=== PATIENT | female | born 1990 | race African-American/Black ===

== ENCOUNTER 2020-07-08 15:30 | Inpatient (IN) | payer OTHER ==
--- NOTE | 2020-07-08 17:31 | PD.OB.PROG ---
Past Medical History - Primary Care Physician PCP:: Timbo Victoria Documenting Provider Type: Laborist - Admission Chief Complaint: ctx History of Present Illness: Term gestation, admitted w ctx. , 40w 5d of gestation. History Source: Patient, Medical Record Limitations to Obtaining History: No Limitations - Nursing Documentation Maternal Triage Index: Maternal Triage Index ( Priority 4, Non-urgent MFTI) Nursing Documentation Reviewed: Yes - Past Medical History SENSORY SCIENTIST: Denies/None Cardio/Vascular: Denies/None Pulmonary: Denies/None Gastrointestinal: Denies/None Hepatobiliary: Denies/None Renal/: Denies/None ...: 1 ...Para: 0 ...Term: 0 ...: 0 ...Spon : 0 ...Induced : 0 ...Living Children: 0 ...LMP: 09/27/19 ... Weeks Gestation by Dates: 40.5 ...EDC by Dates: 07/03/20 Heme/Onc: Denies/None Infectious Disease: Denies/None Psych: Denies/None Musculoskeletal: Denies/None Rheumatology: Denies/None ENT: Denies/None Endocrine: Denies/None Dermatology: Denies/None - Past Surgical History Past Surgical History: Yes: None Review of Systems - Review of Systems Constitutional: reports: No Symptoms Eyes: reports: No Symptoms HENT: reports: No Symptoms Neck: reports: No Symptoms Cardiovascular: reports: No Symptoms Respiratory: reports: No Symptoms Gastrointestinal: reports: No Symptoms Genitourinary: reports: No Symptoms Breasts: reports: No Symptoms Reported Musculoskeletal: reports: No Symptoms Integumentary: reports: No Symptoms Neurological: reports: No Symptoms Endocrine: reports: No Symptoms Hematology/Lymphatic: reports: No Symptoms Psychiatric: reports: No Symptoms Physical Exam - Obstetrical Vital Signs: Vital Signs Temperature 99.2 F 07/08/20 16:00 Pulse Rate 69 07/08/20 16:00 Respiratory Rate 18 07/08/20 16:00 Blood Pressure 131/79 07/08/20 16:00 O2 Sat by Pulse Oximetry (%) Constitutional: Yes: Well Nourished, No Distress, Calm Eyes: Yes: WNL, Conjunctiva Clear, EOM Intact HENT: Yes: WNL, Atraumatic, Normocephalic Neck: Yes: WNL, Supple, Trachea Midline Cardiovascular: Yes: WNL, Regular Rate and Rhythm Lungs: Clear to auscultation Breast(s): Yes: WNL - Abdominal Exam/OB Fundal Height: 40 Number of Fetuses: Single Presentation: Vertex Contractions: Yes Regularity: Irregular Intensity: Mild/Mod Monitor Mode: External Heart Rate (range): 140 Heart Rate Location: [facility] Category: I Accelerations: Uniform - Vaginal Exam/OB Vaginal Exam Deferred: No Vaginal Bleeding: No Speculum Exam: No Dilatation (cm): 0 Effacement (%): 50 Amniotic Membrane Status: Intact Presentation: Vertex/Position Station: -2 - Physical Exam Musculoskeletal: Yes: WNL Extremities: Yes: WNL Integumentary: Yes: WNL ...Motor Strength: WNL Psychiatric: Yes: WNL Problem List - Problems (1) , post-term Code(s): O48.0 - POST-TERM (2) Uterine contractions Code(s): WCK5917 - Assessment/Plan Postdates . Good FH. Prodromal/early labor. Findings discussed w PCP (Dr. Ren.
[2020-07-08] MEDS ORDERED: LACTATED RINGERS SOLUTION 500 ML IV ONE ×2 (18:00→19:00)
[2020-07-08 18:09] LABS: EPI CELLS >36 /uL (0-25.1); HYALINE CASTS 3 /uL (0-3.1); PH,URINE 8.5 (5.0-8.0); URINE APPEARANCE CLOUDY; URINE BACTERIA 510 /uL (0-1359); URINE BILIRUBIN NEGATIVE (NEGATIVE); URINE COLOR YELLOW; URINE GLUCOSE (UA) NEGATIVE (NEGATIVE); URINE KETONE NEGATIVE (NEGATIVE); URINE LEUK ESTERASE NEGATIVE (NEGATIVE); URINE NITRITE NEGATIVE (NEGATIVE); URINE PROTEIN NEGATIVE (NEGATIVE); URINE RBC 27 /uL (0-23.9); URINE WBC 8 /uL (0-25.8)
[2020-07-08 22:50] LABS: BASO % 0.3 % (0-2.0); EOS % 0.1 % (0-4.5); HEMATOCRIT 39.8 % (32.4-45.2); HEMOGLOBIN 13.3 GM/dL (10.7-15.3); LYMPH % 12.2 % (8-40); MCH 29.5 pg (25.7-33.7); MCHC 33.4 g/dl (32.0-36.0); MEAN CELL VOLUME 88.4 fl (80-96); MEAN PLT VOLUME 9.5 fl (7.5-11.1); MONO % 3.4 % (3.8-10.2); PLATELET COUNT 167 K/MM3 (134-434); RDW 14.7 % (11.6-15.6); WHITE BLOOD COUNT 7.6 K/mm3 (4.0-10.0)
[2020-07-08 22:58] LABS: INR 0.92 (0.83-1.09); PROTHROMBIN TIME (PATIENT) 10.9 SEC (9.7-13.0)
[2020-07-08 23:01] LABS: ACTIVATED PTT 25.9 SECONDS (25.2-36.5)
[2020-07-08 23:26] LABS: BLOOD UREA NITROGEN 7.2 mg/dL (7-18); CREATININE 0.6 mg/dL (0.55-1.3); POTASSIUM 4.2 mmol/L (3.5-5.1)
[2020-07-09] MEDS ORDERED: PROMETHAZINE HCL 25 MG/1 ML VIAL ONE (00:10)
[2020-07-09] MEDS ORDERED: BUTORPHANOL TARTRATE 2 MG/ML VIAL ONE (00:10)
[2020-07-09] MEDS ORDERED: BUTORPHANOL TARTRATE 1 MG/ML VIAL IVPB ONE (00:31)
[2020-07-09] MEDS ORDERED: PROMETHAZINE HCL 25 MG/1 ML VIAL IVPB ONE (00:31)
--- NOTE | 2020-07-09 00:44 | HP ---
Past Medical History - Primary Care Physician PCP:: Timbo Victoria - Admission Chief Complaint: Lower abdominal pain History of Present Illness: 30 yo , GUDELIA 07/03/20, EGA 40 weeks 2 days presented with the above. No bleeding or leaking fluid per vagina. History Source: Patient Limitations to Obtaining History: No Limitations - Past Medical History ...: 1 ...Para: 0 ...Term: 0 ...: 0 ...Spon : 0 ...Induced : 0 ...Living Children: 0 ...LMP: 09/27/19 ... Weeks Gestation by Dates: 40.5 ...EDC by Dates: 07/03/20 - Past Surgical History Hx Myomectomy: No Hx Transabdominal Cerclage: No - Smoking History Smoking history: Never smoked - Alcohol/Substance Use Hx Alcohol Use: No History of Substance Use: reports: None - Social History Usual Living Arrangement: Yes: With Significant Other Do you think of yourself as: Straight/Heterosexual History of Recent Travel: No Home Medications - Allergies Allergies/Adverse Reactions: Allergies Allergy/AdvReac Type Severity Reaction Status Date / Time No Known Allergies Allergy Verified 07/08/20 16:32 - Home Medications Home Medications: Ambulatory Orders Pnv No.95/Ferrous Fum/Folic AC [ Formula] 1 each PO DAILY 07/08/20 Family Medical History Family History: Denies Review of Systems - Review of Systems Constitutional: reports: No Symptoms Eyes: reports: No Symptoms HENT: reports: No Symptoms Neck: reports: No Symptoms Cardiovascular: reports: No Symptoms Respiratory: reports: No Symptoms Gastrointestinal: reports: No Symptoms Genitourinary: reports: No Symptoms Breasts: reports: No Symptoms Reported Musculoskeletal: reports: No Symptoms Integumentary: reports: No Symptoms Neurological: reports: No Symptoms Endocrine: reports: No Symptoms Hematology/Lymphatic: reports: No Symptoms Psychiatric: reports: No Symptoms Physical Exam - Maternity Vital Signs: Vital Signs Temperature 97.9 F 07/09/20 00:00 Pulse Rate 60 07/09/20 00:00 Respiratory Rate 20 07/09/20 00:00 Blood Pressure 140/78 07/09/20 00:00 O2 Sat by Pulse Oximetry (%) Constitutional: Yes: Well Nourished Eyes: Yes: WNL HENT: Yes: WNL Neck: Yes: WNL Cardiovascular: Yes: WNL - Abdominal Exam/OB Number of Fetuses: Single Presentation: Vertex Contractions: Yes Regularity: Irregular Intensity: Mild Monitor Mode: External Heart Rate (range): 140 Heart Rate Location: [facility] Category: I Accelerations: Uniform Decelerations: None - Vaginal Exam/OB Vaginal Bleeding: No Speculum Exam: No Dilatation (cm): 2 Effacement (%): 90 Amniotic Membrane Status: Intact Presentation: Vertex/Position Station: -3 - Physical Exam Musculoskeletal: Yes: WNL Extremities: Yes: WNL Edema: No Integumentary: Yes: WNL ...Motor Strength: WNL Psychiatric: Yes: WNL - Labs Lab Results: CBC, BMP 07/08/20 22:40 07/08/20 22:40 Hemorrhage Risk Assessment - Risk Factors Medium Risk Factors: Yes: None High Risk Factors: Yes: None Risk Score: 1 Risk Level: Medium Risk Problem List - Problems (1) 40 weeks gestation of Code(s): Z3A.40 - 40 WEEKS GESTATION OF Assessment/Plan Full term gestation in labor Admit L and D for management
[2020-07-09] MEDS ORDERED: ELECTROLYTE-148 SOLN 1,000 ML IV SCH ×2 (00:45→06:00)
--- NOTE | 2020-07-09 01:16 | PN ---
Progress Note (short form) - Note Progress Note: Patient comfortable on analgesia VSS, afebrile EFM - Baseline 140/min, moderate variability, accelerations, no decelerations [place] - q6 Pelvic - 4cm/90%/-2/vertex Plan - Full term gestation in labor Anticipate vaginal delivery Problem List - Problems (1) 40 weeks gestation of Code(s): Z3A.40 - 40 WEEKS GESTATION OF
[2020-07-09] MEDS ORDERED: FENTANYL/BUPIVACAINE/NS/PF - PCEA - 50 ML DISP.SYRIN EP ONE ×4 (02:52→16:48)
[2020-07-09] MEDS ORDERED: PCA PUMP NR ONE (02:52)
[2020-07-09] MEDS ORDERED: NALOXONE HCL 0.4 MG/ML VIAL IVPUSH PRN (03:30)
[2020-07-09] MEDS: FENTANYL/BUPIVACAINE/NS/PF - PCEA - 50 ML DISP.SYRIN EP SCH (03:30)
[2020-07-09] MEDS ORDERED: OXYTOCIN 30 UNITS in 0.9% NS 30 UNIT/500 ML INFUS.BAG IVPB SCH (05:00)
[2020-07-09] MEDS ORDERED: OXYTOCIN 30 UNITS in 0.9% NS 30 UNIT/500 ML INFUS.BAG IVPB ONE (05:07)
--- NOTE | 2020-07-09 05:59 | PN ---
Progress Note (short form) - Note Progress Note: Patient comfortable on epidural analgesia VSS, afebrile EFM< - Baseline 140/min, modrate variability, accelerations, no decelerations [place] q8-10 Pelvic - 5cm/90%/-2 Plan - Full term gestation in labor Oxytocin augmentation Anticipate vaginal delivery Problem List - Problems (1) 40 weeks gestation of Code(s): Z3A.40 - 40 WEEKS GESTATION OF
[2020-07-09] MEDS ORDERED: AMPICILLIN - 2 GM in SODIUM CHLORIDE 100 ML IVPB ONE (11:00)
[2020-07-09] MEDS ORDERED: BUPIVACAINE HCL/PF 0.25% (2.5MG/ML) 10 ML VIAL ONE (11:01)
[2020-07-09] MEDS ORDERED: AMPICILLIN SODIUM 2 GM VIAL ONE ×2 (11:05→22:10)
--- NOTE | 2020-07-09 11:13 | PN ---
Progress Note (short form) - Note Progress Note: Received sign out around 9.30am IUP @ 40W6D,SROM, EFW- 3800gm,GBS negative, Measles non immune Patient starting to feel pain Call anesthesia FHR 140, moderate variability, positive acceleration ,no decelerations, cat1 [place]- q5-7 min Continue pitocin Ampicillin 2gm then 1 gm, prolonged ROM Trial of labor Anticipate vaginal delivery
--- NOTE | 2020-07-09 14:14 | PN ---
Progress Note (short form) - Note Progress Note: Patient without complaints VE-8-9cm/100/+1 FHR- 10, moderate variability, positive accelerations, no decelerations, cat1 [place]- q2-5 min Continue pitocin Continue trial of labor anticipate vaginal delivery
[2020-07-09] MEDS ORDERED: AMPICILLIN SODIUM 1 GM VIAL ONE (14:43)
[2020-07-09] MEDS: AMPICILLIN - 1 GM in SODIUM CHLORIDE 100 ML IVPB SCH (14:45)
[2020-07-09] MEDS ORDERED: ACETAMINOPHEN 325 MG TABLET (FP) ONE (16:37)
[2020-07-09] MEDS ORDERED: GENTAMICIN INJECTION 120 MG in SODIUM CHLORIDE 100 ML IVPB ONE (17:00)
[2020-07-09] MEDS ORDERED: GENTAMICIN SO4 80 MG/2 ML VIAL ONE (17:00)
[2020-07-09] MEDS ORDERED: ACETAMINOPHEN 325 MG TABLET (FP) PO ONE (17:01)
--- NOTE | 2020-07-09 17:10 | PN ---
Progress Note (short form) - Note Progress Note: Patient with Temp 100.7 VE-9cm/100/0 FHR- 140, moderate variability, positive accelerations, no decelerations cat1 [place]- q2-4 min Start gentamycin, continue ampicillin continue pitocin Discussed plan with patient. Anticipate vaginal delivery
[2020-07-09] MEDS ORDERED: OXYTOCIN 20 UNITS in 0.9% NS 20 UNIT/1,000 ML INFUS.BAG IV ONE (17:21)
[2020-07-09] MEDS ORDERED: LIDOCAINE HCL 1% PRESERVATIVE FREE - 30ML VIAL ONE (17:21)
[2020-07-09] MEDS ORDERED: OXYTOCIN 10 UNITS/ML VIAL ONE (18:11)
[2020-07-09] MEDS ORDERED: WITCH HAZEL 50% (TUCKS) 40 PAD/JAR PAD TP PRN (18:49)
[2020-07-09] MEDS ORDERED: BISACODYL 10 MG SUPP.RECT RC PRN (18:49)
[2020-07-09] MEDS ORDERED: D5W-LR W/ 20 UNITS OXYTOCIN 1,000 ML IV SCH (19:00)
[2020-07-09 19:07] LABS: CORD HCO3 19.5 mmHg (20-29); CORD PCO2 56.8 mmHg (30-78); CORD pH 7.154 (7.14-7.44)
[2020-07-09] MEDS ORDERED: ACETAMINOPHEN 325 MG TABLET (FP) PO PRN (19:08)
[2020-07-09] MEDS ORDERED: ACETAMINOPHEN 1000 MG/100 ML VIAL (NON FORMULARY) IVPB ONE (19:09)
[2020-07-09 19:10] LABS: CORD BASE EXCESS -12.3 mmol/L (0-2); CORD HCO3 17.7 mmHg (20-29); CORD PCO2 57.4 mmHg (30-78); CORD pH 7.106 (7.14-7.44)
--- NOTE | 2020-07-09 19:20 | PN ---
Delivery - Delivery Type of Anesthesia: Epidural Episiotomy/Laceration: None, Periurethral Extnsion/lac, Perineal Extension/lac, 1st degree EBL (cc): 350 Delivery, Single - Stages of Labor Date 1st Stage Initiatied: 07/09/20 Time 1st Stage Initiated: 12:15 Date 2nd Stage Initiated: 07/09/20 Time 2nd Stage Initiated: 17:35 Date of Delivery: 07/09/20 Time of Delivery: 18:06 Time Placenta Delivered: 18:16 - Condition of Naturopath/Lining Cutter Present: No Infant Gender: Male Position: Left, OA Total Hours ROM (Hrs/Mins): 24Hrs/20Mins - 1 Minute Total Score: 9 5 Minutes Total Score: 9 - [place] Feeding Plan Initial Plan: Elected not to breastfeed exclusively throughout hospitalization Remarks - Remarks Remarks: Spontaneous vaginal delivery of a baby boy in cephalic presentation,Nuchal cord x1, reduced over the head, baby delivered atraumatically,IM pitocin given. Placenta delivered intact and spontaneously. Patient continued to bleed, Hemabate given.First degree midline first degree laceration and periuretheral laceration repaired with 2.0 chromic. Hemostasis confirmed. Transfer to maternity when stable. Continue Ampicillin and gentamycin
[2020-07-09] MEDS ORDERED: OXYTOCIN 10 UNITS/ML VIAL IM ONE (19:42)
[2020-07-09] MEDS ORDERED: CARBOPROST TROMETHAMINE 250 MCG/ML AMPUL IM ONE (19:43)
[2020-07-09] MEDS ORDERED: OXYTOCIN 20 UNITS in 0.9% NS 20 UNIT/1,000 ML INFUS.BAG IV SCH (20:00)
[2020-07-09] MEDS ORDERED: SODIUM CHLORIDE 100 ML IVPB ONE (22:10)
[2020-07-09] MEDS: AMPICILLIN - 2 GM in SODIUM CHLORIDE 100 ML IVPB SCH (22:16)
[2020-07-09] MEDS: IBUPROFEN 600 MG TABLET (FP) PO PRN (22:17)
[2020-07-09] MEDS: ACETAMINOPHEN 325 MG TABLET (FP) PO PRN (22:17)
[2020-07-10] MEDS: GENTAMICIN 80 MG PREMIXED IVPB 80 MG/100 ML BAG IVPB SCH ×3 (01:05→16:27)
[2020-07-10] MEDS ORDERED: AMPICILLIN SODIUM 2 GM VIAL ONE ×4 (04:11→20:47)
[2020-07-10] MEDS ORDERED: SODIUM CHLORIDE 100 ML IVPB ONE ×4 (04:12→20:47)
[2020-07-10] MEDS: AMPICILLIN - 2 GM in SODIUM CHLORIDE 100 ML IVPB SCH ×4 (04:18→22:00)
[2020-07-10] MEDS: FENTANYL/BUPIVACAINE/NS/PF - PCEA - 50 ML DISP.SYRIN EP SCH (07:46)
[2020-07-10] MEDS: AMPICILLIN - 1 GM in SODIUM CHLORIDE 100 ML IVPB SCH (07:47)
[2020-07-10 08:32] LABS: BASO % 0.1 % (0-2.0); HEMATOCRIT 30.1 % (32.4-45.2); HEMOGLOBIN 9.9 GM/dL (10.7-15.3); LYMPH % 8.6 % (8-40); MCH 29.1 pg (25.7-33.7); MCHC 32.9 g/dl (32.0-36.0); MEAN CELL VOLUME 88.6 fl (80-96); MONO % 7.9 % (3.8-10.2); NEUT % 83.4 % (42.8-82.8); PLATELET COUNT 133 K/MM3 (134-434); RDW 14.7 % (11.6-15.6); WHITE BLOOD COUNT 15.5 K/mm3 (4.0-10.0)
[2020-07-10] MEDS: IBUPROFEN 600 MG TABLET (FP) PO PRN ×2 (09:24→16:26)
[2020-07-10] MEDS: PRENATAL VITAMINS W/ FOLIC ACID TABLET (FP) PO SCH (09:24)
[2020-07-10] MEDS: ACETAMINOPHEN 325 MG TABLET (FP) PO PRN ×2 (09:25→16:27)
--- NOTE | 2020-07-10 20:21 | PN ---
Progress Note (short form) - Note Progress Note: Patient without complaints Tolerating diet afebrile Temperature intrapartum Abdomen soft, uterus nontender Normal lochial flow No calf tenderness A/P- PPD#1 continue antibiotics If continues to be afebrile, discharge home tomorrow
[2020-07-10] MEDS ORDERED: CLINDAMYCIN 900 MG PREMIX IVPB 900 MG/50 ML BAG IVPB ONE (20:22)
[2020-07-10] MEDS ORDERED: SENNOSIDES/DOCUSATE COMBO (SENNA PLUS) TABLET (UD) PO PRN (22:00)
[2020-07-11] MEDS: ACETAMINOPHEN 325 MG TABLET (FP) PO PRN ×2 (00:25→08:32)
[2020-07-11] MEDS: IBUPROFEN 600 MG TABLET (FP) PO PRN ×2 (00:25→08:34)
[2020-07-11] MEDS: GENTAMICIN 80 MG PREMIXED IVPB 80 MG/100 ML BAG IVPB SCH ×2 (00:26→09:31)
[2020-07-11] MEDS ORDERED: AMPICILLIN SODIUM 2 GM VIAL ONE ×2 (02:14→08:59)
[2020-07-11] MEDS ORDERED: SODIUM CHLORIDE 100 ML IVPB ONE ×2 (02:14→09:00)
[2020-07-11] MEDS: AMPICILLIN - 2 GM in SODIUM CHLORIDE 100 ML IVPB SCH ×3 (03:52→15:08)
[2020-07-11] MEDS: PRENATAL VITAMINS W/ FOLIC ACID TABLET (FP) PO SCH (09:32)
[2020-07-11] MEDS ORDERED: MEASLES,MUMPS&RUBELLA VACC/PF 0.5 ML VIAL SQ ONE (10:00)
[2020-07-11 11:12] VITALS: BP 126/68; PULSE 59; TEMP 97.4
--- NOTE | 2020-07-11 18:47 | PN ---
Post Progress Note Post Day: 2 Type of Delivery: Vital Signs: Vital Signs Temperature 97.4 F L 07/11/20 10:00 Pulse Rate 59 L 07/11/20 10:00 Respiratory Rate 07/11/20 10:00 Blood Pressure 126/68 07/11/20 10:00 O2 Sat by Pulse Oximetry (%) 94 L 07/11/20 10:00 Breast Exam: Yes: Soft Uterus: Yes: Fundus Firm, Fundus below umbilicus, Non-tender Abdomen/GI: Yes: Abdomen soft, Tolerating PO Lochia: Yes: Rubra Lochia, amount: Small Perineum: Yes: Intact - Labs Labs: CBC WBC 15.5 K/mm3 (4.0-10.0) H 07/10/20 07:52 RBC 3.40 M/mm3 (3.60-5.2) L 07/10/20 07:52 Hgb 9.9 GM/dL (10.7-15.3) L 07/10/20 07:52 Hct 30.1 % (32.4-45.2) L D 07/10/20 07:52 MCV 88.6 fl (80-96) 07/10/20 07:52 MCH 29.1 pg (25.7-33.7) 07/10/20 07:52 MCHC 32.9 g/dl (32.0-36.0) 07/10/20 07:52 RDW 14.7 % (11.6-15.6) 07/10/20 07:52 Plt Count 133 K/MM3 (134-434) L D 07/10/20 07:52 MPV 9.0 fl (7.5-11.1) 07/10/20 07:52 Absolute Neuts (auto) 12.9 K/mm3 (1.5-8.0) H 07/10/20 07:52 Neutrophils % 83.4 % (42.8-82.8) H 07/10/20 07:52 Lymphocytes % 8.6 % (8-40) D 07/10/20 07:52 Monocytes % 7.9 % (3.8-10.2) D 07/10/20 07:52 Eosinophils % 0.0 % (0-4.5) D 07/10/20 07:52 Basophils % 0.1 % (0-2.0) 07/10/20 07:52 Nucleated RBC % 0 % (0-0) 07/10/20 07:52 Problem List - Problems (1) 40 weeks gestation of Code(s): Z3A.40 - 40 WEEKS GESTATION OF Assessment/Plan S/P , ppd # 2, stable Discharge home today Follow up at clinic on 07/15/20
--- NOTE | 2020-07-11 18:52 | DS ---
Physical Exam-[employer] Vital Signs: Vital Signs Temperature 97.4 F L 07/11/20 10:00 Pulse Rate 59 L 07/11/20 10:00 Respiratory Rate 07/11/20 10:00 Blood Pressure 126/68 07/11/20 10:00 O2 Sat by Pulse Oximetry (%) 94 L 07/11/20 10:00 Constitutional: Yes: Well Nourished Eyes: Yes: WNL HENT: Yes: WNL Neck: Yes: WNL Cardiovascular: Yes: WNL Respiratory: Yes: WNL Gastrointestinal: Yes: WNL Renal/: Yes: WNL Pelvis: Yes: WNL External Genitalia: Yes: Normal Vaginal Exam: Yes: Normal Cervix: Yes: Normal Uterus: Yes: Normal Adnexa: Normal: Bilateral ....Post : Yes: Uterus firm, Uterus non-tender, Slight lochia rubra Breast(s): Yes: WNL Musculoskeletal: Yes: WNL Extremities: Yes: WNL Edema: No Integumentary: Yes: WNL Neurological: Yes: WNL ...Motor Strength: WNL Psychiatric: Yes: WNL Labs: CBC, BMP 07/10/20 07:52 07/08/20 22:40 Delivery - Delivery Vaginal Delivery: Spontaneous Type of Anesthesia: Epidural Episiotomy/Laceration: None, Periurethral Extnsion/lac, Perineal Extension/lac, 1st degree EBL (cc): 350 Delivery, Single - Stages of Labor Date 1st Stage Initiatied: 07/09/20 Time 1st Stage Initiated: 12:15 Date 2nd Stage Initiated: 07/09/20 Time 2nd Stage Initiated: 17:35 Date of Delivery: 07/09/20 Time of Delivery: 18:06 Time Placenta Delivered: 18:16 - Condition of Infant Funeral Home Attendant/Clipper Counters Present: No Gender: Male Weight: 3.402 kg Position: Left, OA Total Hours ROM (Hrs/Mins): 24Hrs/20Mins - 1 Minute Total Score: 9 5 Minutes Total Score: 9 - [place] Feeding Plan Initial Plan: Elected not to breastfeed exclusively throughout hospitalization Discharge Summary Problems reviewed: Yes Reason For Visit: LABOR Current Active Problems 40 weeks gestation of (Acute) , post-term (Acute) Uterine contractions (Acute) Condition: Stable - Instructions Disposition: HOME - Home Medications Comprehensive Discharge Medication List: Ambulatory Orders Pnv No.95/Ferrous Fum/Folic AC [ Formula] 1 each PO DAILY 07/08/20 Cefuroxime Axetil [Ceftin -] 500 mg PO Q12H #14 tablet 07/11/20 Docusate Sodium [Colace] 100 mg PO BID #20 capsule 07/11/20 Ferrous Sulfate 325 mg PO BID #30 tablet 07/11/20 Ibuprofen 600 mg PO Q6H PRN #30 tablet 07/11/20
== END 2020-07-11 19:00 | disposition home or self-care (01) | DRG 560 ==
LOC: JDEL 15:30 → JLDR 22:00 → J3W 07-09 20:49
PROVIDERS: ADMIT Obstetrics & Gynecology; ATTEND Obstetrics & Gynecology
PROC: 10E0XZZ Delivery of Products of Conception, External Approach (ICD-10-PCS; principal; 2020-07-09)
PROC: 0HQ9XZZ Repair Perineum Skin, External Approach (ICD-10-PCS; 2020-07-09)
PROC: 0W8NXZZ Division of Female Perineum, External Approach (ICD-10-PCS; 2020-07-09)
DX: O48.0 Post-term pregnancy (principal); O70.0 First degree perineal laceration during delivery; O69.81X0 Labor and delivery complicated by cord around neck, without compression, not applicable or unspecified; Z3A.40 40 weeks gestation of pregnancy; Z37.0 Single live birth
CPT/HCPCS: 36415; 36600; 59409; 76819-TC; 80048; 81003; 82803; 85025; 85610; 85730; 86780; 86850; 86900; 86901; 87040; 87086; U0003